=== PATIENT | female | born 1950 | race Caucasian/White ===

== ENCOUNTER 2021-11-11 14:18 | Emergency (ER) | payer MEDICARE, OTHER ==
[2021-11-11] MEDS ORDERED: Sodium Chloride 0.9% 10 ML Syringe FLUSH PRN (14:47)
[2021-11-11] MEDS ORDERED: Iopamidol 755 Mg/ML 100 ML Bottle IV ONE (16:02)
[2021-11-11] MEDS ORDERED: Clopidogrel 75 MG Tab PO STA (17:40)
== END 2021-11-11 18:00 | disposition home or self-care (01) ==
LOC: FB.ED 14:18
DX: R42 Dizziness and giddiness (principal); M62.81 Muscle weakness (generalized); E78.00 Pure hypercholesterolemia, unspecified; K21.9 Gastro-esophageal reflux disease without esophagitis; I10 Essential (primary) hypertension; Z79.899 Other long term (current) drug therapy; Z79.82 Long term (current) use of aspirin
CPT/HCPCS: 36415; 70450; 70496; 70498; 71045; 80053; 84484; 85025; 85610; 85730; 93005; 99284; A9270; J3490; Q9967; 93010; 99283

== ENCOUNTER 2024-07-30 07:31 | Day surgery (SDC) | payer MEDICARE, OTHER ==
[~2024-07-30 07:31] MED LIST: Sodium Chloride 0.9% 10 ML Syringe FLUSH PRN
[2024-07-30] MEDS ORDERED: Glycopyrrolate 0.2 MG/ML 5 ML MDV IV ONE (07:32)
[2024-07-30] MEDS ORDERED: Propofol 200 MG/20 ML SDV IV ONE (07:32)
[2024-07-30] MEDS ORDERED: Lidocaine 2% 100 MG/5 ML Syringe IVPUSH ONE (07:32)
[2024-07-30] MEDS: Lactated Ringers 1,000 ML IV SCH (08:29)
[2024-07-30] MEDS: Simethicone Drops 40 MG/0.6 ML 30 ML Bottle ONE (09:36)
[2024-07-31 20:50] LABS: LACTOFERRIN,FECAL BY ELISA Negative (Negative)
[2024-07-31 23:53] LABS: ADENOVIRUS 40/41 PCR Not Detected; ASTROVIRUS PCR Not Detected; CAMPYLOBACTER PCR Not Detected; CRYPTOSPORIDIUM PCR Not Detected; CYCLOSPORA CAYETANENSIS PCR Not Detected; ENTAMOEBA HISTOLYTICA PCR Not Detected; ENTEROAGGREGATIVE E. COLI PCR Not Detected; ENTEROPATHOGENIC E. COLI PCR Not Detected; ENTEROTOXIGENIC E. COLI PCR Not Detected; GIARDIA LAMBLIA PCR Not Detected; NOROVIRUS GI/GII PCR Not Detected; PLESIOMONAS SHIGELLOIDES PCR Not Detected; ROTAVIRUS A PCR Not Detected; SALMONELLA PCR Not Detected; SAPOVIRUS PCR Not Detected; SHIG/ENTEROINVASIVE E COLI PCR Not Detected; SHIGA TOXIN-PRODUC E. COLI PCR Not Detected; VIBRIO CHOLERAE PCR Not Detected; VIBRIO PCR Not Detected; YERSINIA ENTEROCOLITICA PCR Not Detected
== END 2024-07-30 11:08 | disposition home or self-care (01) ==
LOC: FB.SDS 07:31
PROVIDERS: ATTEND Surgery
DX: Z12.11 Encounter for screening for malignant neoplasm of colon (principal); K52.9 Noninfective gastroenteritis and colitis, unspecified; R19.5 Other fecal abnormalities; I10 Essential (primary) hypertension; Z79.82 Long term (current) use of aspirin; Z79.899 Other long term (current) drug therapy; Z87.891 Personal history of nicotine dependence; Z86.0101 Personal history of adenomatous and serrated colon polyps; Z80.0 Family history of malignant neoplasm of digestive organs
CPT/HCPCS: 00811; 45380; 83630; 87507; 88305; 99100; A9270; J1596; J2704; J7120